=== PATIENT | female | born 1990 | race American Indian/Alaskan Native ===

== ENCOUNTER 2019-04-30 16:34 | Observation (INO) | payer MEDICAID ==
[2019-04-30] MEDS ORDERED: COLACE PO PRN (19:21)
[2019-04-30] MEDS ORDERED: ZOFRAN IV PRN (19:21)
[2019-04-30] MEDS ORDERED: TYLENOL PO PRN (19:21)
[2019-04-30] MEDS ORDERED: MILK OF MAGNESIA PO PRN (19:21)
--- NOTE | 2019-04-30 19:21 | History and Physical Report ---
History of Present Illness Date of examination: 04/30/19 Date of admission: 04/30/19 16:39 Chief complaint: Elevated BP's in office History of present illness: Pt is a 28yo BF EDC 06/01/19; EGA 35 3/7 weeks presents from [facility] for Observation and further evaluation of Preeclampsia. Her BP was 153/89 in the office and 181/110 in Triage, but she had not been taking her Labetolol as directed. She however denied headaches or blurred vision. She received late pre care at [facility] since 32 weeks and co-managed by [facility] for BP and previous C Section. records are available, but no labs noted and GBS is unknown. Past History Past Medical History: hypertension, other (Morbid obesity) Past Surgical History: section Social history: no significant social history, single - Obstetrical History Expected Date of Delivery: 06/01/19 Actual Gestation: 35 Week(s) 3 Day(s) : 3 Medications and Allergies Allergies Allergy/AdvReac Type Severity Reaction Status Date / Time No Known Allergies Allergy Unverified 04/30/19 17:58 Review of Systems All systems: negative - Vital Signs Vital signs: Vital Signs Temp Resp 98.2 F 18 04/30/19 17:25 04/30/19 17:25 Temp Pulse Resp BP Pulse Ox 98.2 F 75 18 143/88 04/30/19 17:25 04/30/19 17:26 04/30/19 17:25 04/30/19 17:26 - Physical Exam Breasts: Positive: deferred Cardiovascular: Regular rate Lungs: Positive: Clear to auscultation Abdomen: Positive: normal appearance Genitourinary (Female): Positive: normal external genitalia Uterus: Positive: enlarged Extremities: Positive: normal - Obstetrical FHR: category 1 Uterine Contraction Monitor Mode: External Uterine Contraction Pattern: Absent Results Result Diagrams: 04/30/19 17:41 04/30/19 17:41 All other labs normal. Ultrasound: report reviewed Assessment and Plan - Patient Problems (1) 35 weeks gestation of Onset Date: 04/30/19 Current Visit: Yes Status: Acute Plan to address problem: A: IUP @ 35 3/7 weeks Chronic hypertension with superimposed Preeclampsia Previous C Section P: Admit for Observation Obtain PIH labs, 24 hour urine Restart Labetolol 200mg BID (2) Chronic hypertension Onset Date: 04/30/19 Current Visit: Yes Status: Chronic (3) Hypertension affecting in third trimester Onset Date: 04/30/19 Current Visit: Yes Status: Acute (4) Previous section complicating Onset Date: 04/30/19 Current Visit: Yes Status: Chronic
[2019-04-30 19:33] LABS: Hematocrit 29.2 % (30.3-42.9); Hemoglobin 9.7 gm/dl (10.1-14.3); Mean Corpuscular HGB Conc 33 % (30-34); Mean Corpuscular Volume 89 fl (79-97); Platelet Count 407 K/mm3 (140-440); Red Blood Count 3.26 M/mm3 (3.65-5.03); Red Cell Distribution Width 14.4 % (13.2-15.2)
[2019-04-30] MEDS ORDERED: PREPARATION H PR PRN (19:46)
[2019-04-30 19:58] LABS: Alanine Aminotransferase 10 units/L (7-56); Uric Acid 4.7 mg/dL (3.5-7.6)
[2019-04-30 20:50] LABS: Alanine Aminotransferase 10 units/L (7-56); Albumin 3.4 g/dL (3.9-5); BUN/Creatinine Ratio 13; Blood Urea Nitrogen 5 mg/dL (7-17); Calcium 8.6 mg/dL (8.4-10.2); Hemolysis Index 16
[2019-04-30] MEDS ORDERED: TUCKS PAD TP PRN (20:54)
[2019-04-30 20:59] LABS: Basophils % (Manual) 0 % (0.0-1.8); Total Cells Counted 100
[2019-04-30 21:00] LABS: Eosinophils % (Manual) 0 % (0.0-4.3)
[2019-04-30 21:01] LABS: Large Platelets Few; RBC Morphology Normal
[2019-04-30 21:03] LABS: Platelet Estimate Appe
[2019-04-30] MEDS: NORMODYNE PO SCH (21:06)
[2019-04-30] MEDS ORDERED: PEPCID IV ONE (21:27)
[2019-04-30] MEDS ORDERED: TUMS PO SCH (22:00)
[2019-04-30] MEDS ORDERED: AMBIEN PO PRN (23:09)
[2019-05-01] MEDS: LACTATED RINGERS 1,000 ML IV SCH ×2 (05:15→10:29)
[2019-05-01] MEDS ORDERED: PRENATAL VITAMIN PO SCH (10:00)
[2019-05-01] MEDS: NORMODYNE PO SCH ×2 (10:26→20:00)
--- NOTE | 2019-05-01 10:39 | Progress Note ---
Assessment and Plan - Patient Problems (1) 35 weeks gestation of Onset Date: 04/30/19 Current Visit: Yes Status: Acute Plan to address problem: A: IUP @ 35 4/7 weeks Chronic hypertension with superimposed Preeclampsia Previous C Section P: Continue Observation Awaiting 24 hour urine results Continue Labetolol 200mg BID (2) Chronic hypertension Onset Date: 04/30/19 Current Visit: Yes Status: Chronic (3) Hypertension affecting in third trimester Onset Date: 04/30/19 Current Visit: Yes Status: Acute (4) Previous section complicating Onset Date: 04/30/19 Current Visit: Yes Status: Chronic Subjective - Subjective Date of service: 05/01/19 Principal diagnosis: IUP @ 35 4/7 weeks; Chronic hypertension with superimposed preeclampsia Interval history: Pt is a 28yo BF EDC 06/01/19; EGA 35 4/7 weeks presented from [facility] for Observation and further evaluation of Preeclampsia. Her BP was 153/89 in the office and 181/110 in Triage, but she had not been taking her Labetolol as directed. She however denied headaches or blurred vision. She received late care at [facility] since 32 weeks and co-managed by [facility] for BP and previous C Section. records are available, but no labs noted and GBS is unknown. This morning she is feeling well without complaints, denying headaches or blurred vision. Patient reports: movement normal, no new complaints, no loss of fluid, no vaginal bleeding, no contractions Objective - Vital Signs Vital Signs: Vital Signs - 12hr 04/30/19 04/30/19 04/30/19 22:40 22:45 22:49 Temperature Pulse Rate 90 93 H 88 Respiratory Rate Blood Pressure O2 Sat by Pulse 99 98 94 Oximetry 04/30/19 04/30/19 04/30/19 22:50 22:55 23:00 Temperature Pulse Rate 95 H 98 H 97 H Respiratory Rate Blood Pressure O2 Sat by Pulse 96 98 97 Oximetry 04/30/19 04/30/19 04/30/19 23:05 23:21 23:35 Temperature Pulse Rate 95 H 86 85 Respiratory Rate Blood Pressure 122/59 O2 Sat by Pulse 98 98 Oximetry 04/30/19 04/30/19 04/30/19 23:40 23:45 23:50 Temperature Pulse Rate 85 98 H 85 Respiratory Rate Blood Pressure O2 Sat by Pulse 99 98 99 Oximetry 04/30/19 05/01/19 05/01/19 23:55 00:00 00:06 Temperature 98.5 F Pulse Rate 84 84 84 Respiratory Rate Blood Pressure O2 Sat by Pulse 98 100 99 Oximetry 05/01/19 05/01/19 05/01/19 00:11 00:16 00:50 Temperature Pulse Rate 91 H 83 94 H Respiratory Rate Blood Pressure O2 Sat by Pulse 100 100 99 Oximetry 05/01/19 05/01/19 05/01/19 00:55 01:00 01:05 Temperature Pulse Rate 99 H 111 H 93 H Respiratory Rate Blood Pressure O2 Sat by Pulse 98 99 98 Oximetry 05/01/19 05/01/19 05/01/19 01:10 01:15 01:20 Temperature Pulse Rate 86 89 89 Respiratory Rate Blood Pressure O2 Sat by Pulse 96 97 97 Oximetry 05/01/19 05/01/19 05/01/19 01:25 01:30 01:35 Temperature Pulse Rate 82 84 85 Respiratory Rate Blood Pressure O2 Sat by Pulse 98 97 98 Oximetry 05/01/19 05/01/19 05/01/19 01:40 01:45 01:50 Temperature Pulse Rate 76 79 83 Respiratory Rate Blood Pressure O2 Sat by Pulse 96 97 96 Oximetry 05/01/19 05/01/19 05/01/19 01:53 01:55 02:00 Temperature Pulse Rate 99 H 85 77 Respiratory Rate Blood Pressure 119/68 O2 Sat by Pulse 97 98 Oximetry 05/01/19 05/01/19 05/01/19 02:05 02:10 02:15 Temperature Pulse Rate 76 78 91 H Respiratory Rate Blood Pressure O2 Sat by Pulse 98 97 97 Oximetry 05/01/19 05/01/19 05/01/19 02:20 02:25 02:30 Temperature Pulse Rate 81 70 76 Respiratory Rate Blood Pressure O2 Sat by Pulse 98 99 97 Oximetry 05/01/19 05/01/19 05/01/19 02:35 02:40 02:42 Temperature Pulse Rate 82 90 86 Respiratory Rate Blood Pressure O2 Sat by Pulse 97 97 94 Oximetry 05/01/19 05/01/19 05/01/19 02:45 02:47 02:50 Temperature Pulse Rate 92 H 89 98 H Respiratory Rate Blood Pressure O2 Sat by Pulse 99 93 95 Oximetry 05/01/19 05/01/19 05/01/19 02:55 02:59 03:00 Temperature Pulse Rate 82 97 H 84 Respiratory Rate Blood Pressure O2 Sat by Pulse 98 87 99 Oximetry 05/01/19 05/01/19 05/01/19 03:05 03:10 03:15 Temperature Pulse Rate 93 H 89 Respiratory Rate Blood Pressure O2 Sat by Pulse 99 87 98 Oximetry 05/01/19 05/01/19 05/01/19 03:20 03:25 03:30 Temperature Pulse Rate 82 84 84 Respiratory Rate Blood Pressure O2 Sat by Pulse 97 98 99 Oximetry 05/01/19 05/01/19 05/01/19 03:35 03:40 03:45 Temperature Pulse Rate 85 82 87 Respiratory Rate Blood Pressure O2 Sat by Pulse 97 98 97 Oximetry 05/01/19 05/01/19 05/01/19 03:50 03:53 03:55 Temperature Pulse Rate 82 86 94 H Respiratory Rate Blood Pressure 126/76 O2 Sat by Pulse 98 98 Oximetry 05/01/19 05/01/19 05/01/19 04:00 04:05 04:10 Temperature Pulse Rate 79 82 87 Respiratory Rate Blood Pressure O2 Sat by Pulse 97 96 96 Oximetry 05/01/19 05/01/19 05/01/19 04:15 04:20 04:25 Temperature Pulse Rate 108 H 90 85 Respiratory Rate Blood Pressure O2 Sat by Pulse 95 97 97 Oximetry 05/01/19 05/01/19 05/01/19 04:30 04:35 04:40 Temperature Pulse Rate 103 H 95 H 96 H Respiratory Rate Blood Pressure O2 Sat by Pulse 97 98 98 Oximetry 05/01/19 05/01/19 05/01/19 04:45 04:56 04:57 Temperature Pulse Rate 98 H 35 L 95 H Respiratory Rate Blood Pressure O2 Sat by Pulse 98 0 L 100 Oximetry 05/01/19 05/01/19 05/01/19 05:02 05:07 05:12 Temperature Pulse Rate 98 H 86 83 Respiratory Rate Blood Pressure O2 Sat by Pulse 100 98 98 Oximetry 05/01/19 05/01/19 05/01/19 05:17 05:22 05:27 Temperature Pulse Rate 86 87 89 Respiratory Rate Blood Pressure O2 Sat by Pulse 98 98 98 Oximetry 05/01/19 05/01/19 05/01/19 05:32 05:37 05:43 Temperature Pulse Rate 73 91 H 83 Respiratory Rate Blood Pressure O2 Sat by Pulse 98 99 99 Oximetry 05/01/19 05/01/19 05/01/19 05:45 05:48 05:53 Temperature Pulse Rate 56 L 89 88 Respiratory Rate Blood Pressure 145/76 O2 Sat by Pulse 78 L 100 89 Oximetry 05/01/19 05/01/19 05/01/19 05:58 06:03 06:08 Temperature Pulse Rate 76 73 88 Respiratory Rate Blood Pressure O2 Sat by Pulse 98 97 98 Oximetry 05/01/19 05/01/19 05/01/19 06:10 06:13 06:16 Temperature Pulse Rate 88 87 98 H Respiratory Rate Blood Pressure O2 Sat by Pulse 93 98 94 Oximetry 05/01/19 05/01/19 05/01/19 06:18 06:23 06:28 Temperature Pulse Rate 93 H 91 H 87 Respiratory Rate Blood Pressure O2 Sat by Pulse 96 97 96 Oximetry 05/01/19 05/01/19 05/01/19 06:33 06:38 06:43 Temperature Pulse Rate 86 91 H 88 Respiratory Rate Blood Pressure O2 Sat by Pulse 96 96 96 Oximetry 05/01/19 05/01/19 05/01/19 06:45 06:48 06:50 Temperature 98.5 F Pulse Rate 73 88 Respiratory Rate Blood Pressure O2 Sat by Pulse 96 94 Oximetry 05/01/19 05/01/19 05/01/19 06:53 06:55 06:58 Temperature Pulse Rate 88 86 87 Respiratory Rate Blood Pressure O2 Sat by Pulse 94 94 94 Oximetry 05/01/19 05/01/19 05/01/19 07:01 07:03 07:08 Temperature Pulse Rate 88 71 94 H Respiratory Rate Blood Pressure O2 Sat by Pulse 94 95 95 Oximetry 05/01/19 05/01/19 05/01/19 07:13 07:18 07:23 Temperature Pulse Rate 86 87 99 H Respiratory Rate Blood Pressure O2 Sat by Pulse 96 95 98 Oximetry 05/01/19 05/01/19 05/01/19 07:28 07:29 07:33 Temperature 98.5 F Pulse Rate 105 H 97 H 89 Respiratory 18 Rate Blood Pressure 122/64 O2 Sat by Pulse 98 98 Oximetry 05/01/19 05/01/19 05/01/19 07:38 07:43 07:48 Temperature Pulse Rate 92 H 91 H 89 Respiratory Rate Blood Pressure O2 Sat by Pulse 97 99 97 Oximetry 05/01/19 05/01/19 05/01/19 07:53 07:58 08:03 Temperature Pulse Rate 97 H 93 H 100 H Respiratory Rate Blood Pressure 126/66 O2 Sat by Pulse 96 97 97 Oximetry 05/01/19 05/01/19 05/01/19 08:08 08:09 08:13 Temperature Pulse Rate 98 H 94 H 102 H Respiratory Rate Blood Pressure O2 Sat by Pulse 96 92 99 Oximetry 05/01/19 05/01/19 05/01/19 08:16 08:46 08:51 Temperature Pulse Rate 99 H 90 88 Respiratory Rate Blood Pressure O2 Sat by Pulse 91 99 99 Oximetry 05/01/19 05/01/19 05/01/19 08:56 09:01 09:06 Temperature Pulse Rate 87 93 H 90 Respiratory Rate Blood Pressure O2 Sat by Pulse 99 100 100 Oximetry 05/01/19 05/01/19 05/01/19 09:11 09:16 09:20 Temperature Pulse Rate 87 92 H 90 Respiratory Rate Blood Pressure 128/77 O2 Sat by Pulse 99 99 Oximetry 05/01/19 05/01/19 05/01/19 09:21 09:26 09:31 Temperature Pulse Rate 94 H 100 H 94 H Respiratory Rate Blood Pressure O2 Sat by Pulse 98 99 99 Oximetry 05/01/19 05/01/19 05/01/19 09:36 09:37 09:40 Temperature Pulse Rate 102 H 88 99 H Respiratory Rate Blood Pressure O2 Sat by Pulse 98 93 99 Oximetry 05/01/19 05/01/19 05/01/19 09:46 09:51 09:56 Temperature Pulse Rate 100 H 93 H 97 H Respiratory Rate Blood Pressure O2 Sat by Pulse 100 98 99 Oximetry 05/01/19 05/01/19 05/01/19 10:01 10:06 10:11 Temperature Pulse Rate 92 H 95 H 93 H Respiratory Rate Blood Pressure O2 Sat by Pulse 99 100 100 Oximetry 05/01/19 05/01/19 05/01/19 10:15 10:16 10:26 Temperature Pulse Rate 95 H 96 H 90 Respiratory Rate Blood Pressure 149/89 O2 Sat by Pulse 81 L 100 Oximetry 05/01/19 10:27 Temperature Pulse Rate 90 Respiratory Rate Blood Pressure 149/89 O2 Sat by Pulse Oximetry - Exam Abdomen: Present: normal appearance, soft Uterus: Present: normal FHR: category 1 Uterine Contraction Monitor Mode: External Uterine Contraction Pattern: Absent - Labs Labs: Abnormal Labs 04/30/19 04/30/19 04/30/19 17:41 17:41 17:41 WBC 13.5 H RBC 3.26 L Hgb 9.7 L Hct 29.2 L Seg Neuts % (Manual) 82.0 H Seg Neutrophils # Man 11.1 H Sodium 135 L Carbon Dioxide 18 L BUN 5 L Creatinine 0.4 L 0.4 L Alkaline Phosphatase 130 H Lactate Dehydrogenase 257 H Albumin 3.4 L Laboratory Results - last 24 hr 04/30/19 04/30/19 04/30/19 17:41 17:41 17:41 WBC 13.5 H RBC 3.26 L Hgb 9.7 L Hct 29.2 L MCV 89 MCH 30 MCHC 33 RDW 14.4 Plt Count 407 Total Counted 100 Seg Neuts % (Manual) 82.0 H Band Neutrophils % 0 Lymphocytes % (Manual) 16.0 Reactive Lymphs % (Man) 0 Monocytes % (Manual) 2.0 Eosinophils % (Manual) 0 Basophils % (Manual) 0 Metamyelocytes % 0 Myelocytes % 0 Promyelocytes % 0 Blast Cells % 0 Nucleated RBC % Not Reportable Seg Neutrophils # Man 11.1 H Band Neutrophils # 0.0 Lymphocytes # (Manual) 2.2 Abs React Lymphs (Man) 0.0 Monocytes # (Manual) 0.3 Eosinophils # (Manual) 0.0 Basophils # (Manual) 0.0 Metamyelocytes # 0.0 Myelocytes # 0.0 Promyelocytes # 0.0 Blast Cells # 0.0 WBC Morphology Not Reportable Hypersegmented Neuts Not Reportable Hyposegmented Neuts Not Reportable Hypogranular Neuts Not Reportable Smudge Cells Not Reportable Toxic Granulation Not Reportable Toxic Vacuolation Not Reportable Dohle Bodies Not Reportable Pelger-Huet Anomaly Not Reportable Armando Rods Not Reportable Platelet Estimate Appe Clumped Platelets Not Reportable Plt Clumps, EDTA Not Reportable Large Platelets Few Giant Platelets Not Reportable Platelet Satelliting Not Reportable Plt Morphology Comment Not Reportable RBC Morphology Normal Dimorphic RBCs Not Reportable Polychromasia Not Reportable Hypochromasia Not Reportable Poikilocytosis Not Reportable Anisocytosis Not Reportable Microcytosis Not Reportable Macrocytosis Not Reportable Spherocytes Not Reportable Pappenheimer Bodies Not Reportable Sickle Cells Not Reportable Target Cells Not Reportable Tear Drop Cells Not Reportable Ovalocytes Not Reportable Helmet Cells Not Reportable Kan-Startex Bodies Not Reportable Bixby Rings Not Reportable [place] Cells Not Reportable Bite Cells Not Reportable Crenated Cell Not Reportable Elliptocytes Not Reportable Acanthocytes (Spur) Not Reportable Rouleaux Not Reportable Hemoglobin C Crystals Not Reportable Schistocytes Not Reportable Malaria parasites Not Reportable Jerome Bodies Not Reportable Hem Pathologist Commnt No Sodium Potassium Chloride Carbon Dioxide Anion Gap BUN Creatinine 0.4 L Estimated GFR > 60 BUN/Creatinine Ratio Glucose Uric Acid 4.7 Calcium Total Bilirubin AST 15 ALT 10 Alkaline Phosphatase Lactate Dehydrogenase 257 H Total Protein Albumin Albumin/Globulin Ratio Hep Bs Antigen HIV 1&2 Antibody Rapid HIV P24 Antigen Rubella IgG Antibody Blood Type O POSITIVE Antibody Screen Negative 04/30/19 04/30/19 04/30/19 17:41 17:41 17:41 WBC RBC Hgb Hct MCV MCH MCHC RDW Plt Count Total Counted Seg Neuts % (Manual) Band Neutrophils % Lymphocytes % (Manual) Reactive Lymphs % (Man) Monocytes % (Manual) Eosinophils % (Manual) Basophils % (Manual) Metamyelocytes % Myelocytes % Promyelocytes % Blast Cells % Nucleated RBC % Seg Neutrophils # Man Band Neutrophils # Lymphocytes # (Manual) Abs React Lymphs (Man) Monocytes # (Manual) Eosinophils # (Manual) Basophils # (Manual) Metamyelocytes # Myelocytes # Promyelocytes # Blast Cells # WBC Morphology Hypersegmented Neuts Hyposegmented Neuts Hypogranular Neuts Smudge Cells Toxic Granulation Toxic Vacuolation Dohle Bodies Pelger-Huet Anomaly Armando Rods Platelet Estimate Clumped Platelets Plt Clumps, EDTA Large Platelets Giant Platelets Platelet Satelliting Plt Morphology Comment RBC Morphology Dimorphic RBCs Polychromasia Hypochromasia Poikilocytosis Anisocytosis Microcytosis Macrocytosis Spherocytes Pappenheimer Bodies Sickle Cells Target Cells Tear Drop Cells Ovalocytes Helmet Cells Kan-Startex Bodies Bixby Rings Nyla Cells Bite Cells Crenated Cell Elliptocytes Acanthocytes (Spur) Rouleaux Hemoglobin C Crystals Schistocytes Malaria parasites Jerome Bodies Hem Pathologist Commnt Sodium 135 L Potassium 3.8 Chloride 101.8 Carbon Dioxide 18 L Anion Gap 19 BUN 5 L Creatinine 0.4 L Estimated GFR > 60 BUN/Creatinine Ratio 13 Glucose 75 Uric Acid Calcium 8.6 Total Bilirubin < 0.20 AST 15 ALT 10 Alkaline Phosphatase 130 H Lactate Dehydrogenase Total Protein 7.1 Albumin 3.4 L Albumin/Globulin Ratio 0.9 Hep Bs Antigen Non-reactive HIV 1&2 Antibody Rapid HIV P24 Antigen Rubella IgG Antibody Immune Blood Type Antibody Screen 04/30/19 17:41 WBC RBC Hgb Hct MCV MCH MCHC RDW Plt Count Total Counted Seg Neuts % (Manual) Band Neutrophils % Lymphocytes % (Manual) Reactive Lymphs % (Man) Monocytes % (Manual) Eosinophils % (Manual) Basophils % (Manual) Metamyelocytes % Myelocytes % Promyelocytes % Blast Cells % Nucleated RBC % Seg Neutrophils # Man Band Neutrophils # Lymphocytes # (Manual) Abs React Lymphs (Man) Monocytes # (Manual) Eosinophils # (Manual) Basophils # (Manual) Metamyelocytes # Myelocytes # Promyelocytes # Blast Cells # WBC Morphology Hypersegmented Neuts Hyposegmented Neuts Hypogranular Neuts Smudge Cells Toxic Granulation Toxic Vacuolation Dohle Bodies Pelger-Huet Anomaly Armando Rods Platelet Estimate Clumped Platelets Plt Clumps, EDTA Large Platelets Giant Platelets Platelet Satelliting Plt Morphology Comment RBC Morphology Dimorphic RBCs Polychromasia Hypochromasia Poikilocytosis Anisocytosis Microcytosis Macrocytosis Spherocytes Pappenheimer Bodies Sickle Cells Target Cells Tear Drop Cells Ovalocytes Helmet Cells Kna-Startex Bodies Bixby Rings [place] Cells Bite Cells Crenated Cell Elliptocytes Acanthocytes (Spur) Rouleaux Hemoglobin C Crystals Schistocytes Malaria parasites Jerome Bodies Hem Pathologist Commnt Sodium Potassium Chloride Carbon Dioxide Anion Gap BUN Creatinine Estimated GFR BUN/Creatinine Ratio Glucose Uric Acid Calcium Total Bilirubin AST ALT Alkaline Phosphatase Lactate Dehydrogenase Total Protein Albumin Albumin/Globulin Ratio Hep Bs Antigen HIV 1&2 Antibody Rapid Non react HIV P24 Antigen Non react Rubella IgG Antibody Blood Type Antibody Screen
--- NOTE | 2019-05-01 12:51 | Consultation ---
History of Present Illness Consult date: 05/01/19 Reason for consult: other (CHTN) History of present illness: Ms. Hurd is a 28 yo at 35.4 weeks gestation, noncompliant CHTN with Preeclampsia hx in previous admitted to [facility] on 04/30/19 secondary to elevated BP in [facility] office. She is currently being treated with Labetalol 200mg BID for CHTN management. 24 hour urine protein is in progress. She denies PIH symptoms. She admits movements. She denies PIH symptoms, contractions, leaking of fluid, and bleeding. She is without additional complaints. Past History Past Medical History: hypertension, other (Morbid obesity) Past Surgical History: section - Obstetrical History : 3 Medications and Allergies Allergies Allergy/AdvReac Type Severity Reaction Status Date / Time No Known Allergies Allergy Unverified 04/30/19 17:58 Active Meds: Active Medications Acetaminophen (Tylenol) 650 mg PO Q4H PRN PRN Reason: Pain MILD(1-3)/Fever >100.5/JEROME Calcium Carbonate/Glycine (Tums) 500 mg PO BID [facility] Last Admin: 05/01/19 10:33 Dose: 500 mg Documented by: Docusate Sodium (Colace) 100 mg PO Q12H PRN PRN Reason: Constipation Lactated Ringer's (Lactated Ringers) 1,000 mls @ 125 mls/hr IV DIRECT [facility] Last Admin: 05/01/19 10:29 Dose: 125 mls/hr Documented by: Labetalol HCl (Normodyne) 200 mg PO BID [facility] Last Admin: 05/01/19 10:26 Dose: 200 mg Documented by: Magnesium Hydroxide (Milk Of Magnesia) 30 ml PO QHS PRN PRN Reason: Laxative Effect Multivitamins/Iron/Calcium ( Vitamin) 1 each PO QDAY [facility] Last Admin: 05/01/19 10:26 Dose: 1 each Documented by: Ondansetron HCl (Zofran) 4 mg IV Q6H PRN PRN Reason: Nausea And Vomiting Last Admin: 04/30/19 21:06 Dose: 4 mg Documented by: Phenyleph/Shark Oil/Min Oil/Petrol (Preparation H) 1 applic ID [id number] PRN PRN Reason: Hemorrhoids Witch Summer/Glycerin (Tucks Pad) 1 each TP PRN PRN PRN Reason: Hemorrhoids Last Admin: 04/30/19 23:51 Dose: 1 each Documented by: Zolpidem Tartrate (Ambien) 10 mg PO QHS PRN PRN Reason: Insomnia Last Admin: 04/30/19 23:50 Dose: 10 mg Documented by: Review of Systems Constitutional: other (denies fatigue, chills, fever) Eyes: other (denies visual disturbances) Ears, nose, mouth and throat: deferred Cardiovascular: other (denies chest pain, edema, palpitations, sob) Respiratory: other (denies sob, wheezing, coughing) Breasts: deferred Gastrointestinal: other (denies diarrhea, constipation, RUQ pain) Genitourinary: other (denies contractions, leaking of fluid, and bleeding) Rectal Exam: deferred Integumentary: deferred Neurological: other (denies headaches) - Vital Signs Vital signs: Vital Signs Temp Resp 98.2 F 18 04/30/19 17:25 04/30/19 17:25 Temp Pulse Resp BP Pulse Ox 98.5 F 86 18 132/73 100 05/01/19 07:29 05/01/19 12:32 05/01/19 07:29 05/01/19 12:32 05/01/19 10:16 - Physical Exam Breasts: Positive: deferred Cardiovascular: Regular rate, Normal S1, Normal S2 Lungs: Positive: Clear to auscultation, Normal air movement Abdomen: Positive: soft, other (nontender, gravid) Results Result Diagrams: 04/30/19 17:41 04/30/19 17:41 Abnormal lab results 04/30/19 04/30/19 04/30/19 Range/Units 17:41 17:41 17:41 WBC 13.5 H (4.5-11.0) K/mm3 RBC 3.26 L (3.65-5.03) M/mm3 Hgb 9.7 L (10.1-14.3) gm/dl Hct 29.2 L (30.3-42.9) % Seg Neuts % (Manual) 82.0 H (40.0-70.0) % Seg Neutrophils # Man 11.1 H (1.8-7.7) K/mm3 Sodium 135 L (137-145) mmol/L Carbon Dioxide 18 L (22-30) mmol/L BUN 5 L (7-17) mg/dL Creatinine 0.4 L 0.4 L (0.7-1.2) mg/dL Alkaline Phosphatase 130 H (35-129) units/L Lactate Dehydrogenase 257 H (91-180) units/L Albumin 3.4 L (3.9-5) g/dL All other labs normal. Assessment and Plan A- IUP 35.4 weeks- NENA 06/01/19 CHTN- managed on Labetalol 200mg BID VSS 24 hour urine protein in progress Denies PIH symptoms P- Continue with current plan of care With severe range BP, abnormal labs, and PIH symptoms, recommend delivery. Complete Betamethasone course for lung maturity in case of delivery ( Per ACOG can be given up until 36.6 weeks gestation) Monitor for worsening PIH symptoms Continuous monitoring For additional questions or concerns, please contact [facility] customer service receptionist. Thank you. Kacie Trujillo NP
[2019-05-01] MEDS ORDERED: PEPCID IV ONE (15:34)
--- NOTE | 2019-05-01 19:45 | Discharge Summary ---
Providers - Providers Date of Admission: 04/30/19 16:39 Date of discharge: 05/01/19 Attending physician: JAE RUIZ Primary care physician: JAE RUIZ Hospitalization Reason for admission: IUP - , other (IUP @ 35 3/7 weeks; Chronic hypertension with superimposed preeclampsia) Other procedures: none complications: none Discharge diagnosis: other (IUP @ 35 4/7 weeks; Chronic hypertension with superimposed preeclampsia) Hospital course: Pt is a 28yo BF EDC 06/01/19; EGA 35 4/7 weeks presented from [facility] for Observation and further evaluation of Preeclampsia. Her BP was 153/89 in the office and 181/110 in Triage, but she had not been taking her Labetolol as directed. She however denied headaches or blurred vision. She received late care at [facility] since 32 weeks and co-managed by [facility] for BP and previous C Section. records are available, but no labs noted and GBS is unknown. This morning she is feeling well without complaints, denying headaches or blurred vision. Appreciate APA consult. Her 24hr Total protein 286mg She will be D/C home on Labetolol 200mg BID (already called in to [facility]) and follow up in the office in 3 days for BP check. Condition at discharge: Good Disposition: DC-01 TO HOME OR SELFCARE - Discharge Diagnoses (1) 35 weeks gestation of Status: Acute (2) Chronic hypertension Status: Chronic (3) Hypertension affecting in third trimester Status: Acute (4) Previous section complicating Status: Chronic Plan - Discharge Medications Prescriptions: Labetalol [Labetalol 200mg TAB] 200 mg PO BID #60 tablet - Provider Discharge Summary Activity: routine, no sex for 6 weeks, no heavy lifting 4 weeks, no strenuous exercise Diet: routine Instructions: routine Additional instructions: [] Smoking cessation referral if applicable(refer to patient education folder for contact #) [] Refer to [facility] Booklet Call your doctor immediately for: * Fever > 100.5 * Heavy vaginal bleeding ( >1 pad per hour) * Severe persistent headache * Shortness of breath * Reddened, hot, painful area to leg or breast * Drainage or odor from incision. * Keep incision clean and dry at all times and follow doctor's instructions regarding bathing/showering - Follow up plan Follow up: JAE RUIZ MD [Primary Care Provider] - 3 Days LEANDER BLEVINS CNM [Advanced Practice Nurse] - 3 Days
[2019-05-01 19:57] VITALS: BP 152/72
== END 2019-05-01 20:03 | disposition home or self-care (01) ==
LOC: TRG 16:34 → LD 16:37 → TRG 16:38 → LD 16:39
PROVIDERS: ADMIT Obstetrics & Gynecology; ATTEND Obstetrics & Gynecology
DX: O16.3 Unspecified maternal hypertension, third trimester (principal); Z98.890 Other specified postprocedural states; Z3A.35 35 weeks gestation of pregnancy; O99.213 Obesity complicating pregnancy, third trimester; Z79.899 Other long term (current) drug therapy
CPT/HCPCS: 36415; 80053; 82565; 83615; 84156; 84450; 84460; 84550; 85007; 85027; 86706; 86762; 86850; 86900; 86901; 87806; 96374; 96375; 96376; G0378; J2405; J7120

== ENCOUNTER 2019-05-14 12:52 | Inpatient (IN) | payer MEDICAID ==
[2019-05-14] MEDS ORDERED: MINERAL OIL PO PRN (17:23)
[2019-05-14] MEDS ORDERED: ZOFRAN IV PRN (17:23)
[2019-05-14] MEDS ORDERED: SUBLIMAZE IV PRN (17:23)
[2019-05-14] MEDS ORDERED: BRETHINE IVP PRN (17:23)
[2019-05-14] MEDS ORDERED: STADOL IV PRN (17:23)
[2019-05-14] MEDS ORDERED: XYLOCAINE 2% INFILTRATI ONE (17:23)
[2019-05-14] MEDS ORDERED: BRETHINE SUB-Q PRN (17:23)
--- NOTE | 2019-05-14 17:30 | History and Physical Report ---
History of Present Illness Date of examination: 05/14/19 Date of admission: 05/14/19 12:52 History of present illness: Pt is a 28yo BF EDC 06/01/19; EGA 37 3/7 weeks presents from [facility] for D elivery and evaluation of Preeclampsia. Her BP was 149/88 and 171/107 in the office even with taking her Labetolol 200mg BID as directed. She however denied headaches or blurred vision. She received late care at [facility] since 32 weeks and co-managed by [facility] for Chronic hypertension, Obesity and previous C Section. records are available, and GBS is unknown. Past History Past Medical History: hypertension Past Surgical History: section Family/Genetic History: none Social history: no significant social history, single - Obstetrical History Expected Date of Delivery: 06/01/19 Actual Gestation: 37 Week(s) 3 Day(s) : 3 Medications and Allergies Allergies Allergy/AdvReac Type Severity Reaction Status Date / Time No Known Allergies Allergy Unverified 04/30/19 17:58 Home Medications Medication Instructions Recorded Confirmed Last Taken Type Labetalol [Labetalol 200mg TAB] 200 mg PO BID #60 tablet 05/01/19 Unknown Rx Active Meds: Active Medications Butorphanol Tartrate (Stadol) 2 mg IV Q2H PRN PRN Reason: Pain , Severe (7-10) Dinoprostone (Cervidil) 10 mg VG ONCE ONE Stop: 05/14/19 17:24 Ephedrine Sulfate (Ephedrine Sulfate) 10 mg IV Q2M PRN PRN Reason: Hypotension Fentanyl (Sublimaze) 100 mcg IV Q2H PRN PRN Reason: Labor Pain Oxytocin/Sodium Chloride (Pitocin/Ns 20 Unit/1000ml Drip) 20 units in 1,000 mls @ 125 mls/hr IV DIRECT JEWEL Oxytocin/Sodium Chloride (Pitocin/Ns 30 Unit/500ml) 30 units in 500 mls @ 1 mls/hr IV TITR JEWEL; Protocol Lactated Ringer's (Lactated Ringers) 1,000 mls @ 125 mls/hr IV DIRECT JEWEL Lidocaine (Xylocaine 2%) 20 ml INFILTRATI ONCE ONE Stop: 05/14/19 17:24 Mineral Oil (Mineral Oil) 30 ml PO QHS PRN PRN Reason: Constipation Ondansetron HCl (Zofran) 4 mg IV Q8H PRN PRN Reason: Nausea And Vomiting Terbutaline Sulfate (Brethine) 0.25 mg SUB-Q ONCE PRN PRN Reason: Hyperstimulation/Hypertonicity Terbutaline Sulfate (Brethine) 0.25 mg IVP ONCE PRN PRN Reason: Hyperstimulation/Hypertonicity Review of Systems All systems: negative - Vital Signs Vital signs: Vital Signs Temp Resp 98.5 F 18 05/14/19 13:25 05/14/19 13:25 Temp Pulse Resp BP Pulse Ox 98.5 F 87 18 138/88 05/14/19 13:25 05/14/19 16:46 05/14/19 13:25 05/14/19 16:46 - Physical Exam Breasts: Positive: deferred Cardiovascular: Regular rate Lungs: Positive: Clear to auscultation Abdomen: Positive: normal appearance Genitourinary (Female): Positive: normal external genitalia Uterus: Positive: enlarged Extremities: Positive: normal - Obstetrical FHR: category 1 Uterine Contraction Monitor Mode: External Cervical Dilatation: 1 (per nurse) Cervical Effacement Percentage: 30 (per nurse) station: -3 Uterine Contraction Pattern: Absent Results Result Diagrams: 05/14/19 17:15 All other labs normal. Ultrasound: report reviewed (BPP 8/8; Cephalic; NGHIA 21.62) Assessment and Plan - Patient Problems (1) 37 weeks gestation of Current Visit: Yes Status: Acute Plan to address problem: A: IUP @ 37 3/7 weeks Chronic hypertension with superimposed preeclampsia Obesity Previous C Section P: Admit for cervidil/pitocin induction of labor PIH labs IV Magnesium sulfate, IV hydralazine as needed (2) Hypertension affecting in third trimester Onset Date: 04/30/19 Current Visit: No Status: Acute (3) Previous section complicating Onset Date: 04/30/19 Current Visit: No Status: Chronic
[2019-05-14 17:45] LABS: Hematocrit 31.9 % (30.3-42.9); Hemoglobin 10.8 gm/dl (10.1-14.3); Mean Corpuscular HGB Conc 34 % (30-34); Mean Corpuscular Volume 89 fl (79-97); Platelet Count 454 K/mm3 (140-440); Red Blood Count 3.58 M/mm3 (3.65-5.03); Red Cell Distribution Width 15.5 % (13.2-15.2)
[2019-05-14] MEDS ORDERED: LACTATED RINGERS 1,000 ML IV SCH (18:00)
[2019-05-14] MEDS ORDERED: PITOCin/NS 20 UNIT/1000ML DRIP 20 UNITS/1,000 ML BAG IV SCH (18:00)
[2019-05-14] MEDS ORDERED: PITOCin/NS 30 UNIT/500ML 30 UNITS/500 ML BAG IV SCH (18:00)
[2019-05-14] MEDS ORDERED: CERVIDIL VG ONE ×2 (18:30→20:59)
[2019-05-14] MEDS ORDERED: ALUM-MAG HYDROX-SIMETH 200-200-20MG/5ML PO PRN (20:04)
[2019-05-14] MEDS ORDERED: AMBIEN PO ONE (22:00)
[2019-05-14 22:21] LABS: Alanine Aminotransferase 9 units/L (7-56); Albumin 3.5 g/dL (3.9-5); BUN/Creatinine Ratio 15; Blood Urea Nitrogen 6 mg/dL (7-17); Calcium 8.6 mg/dL (8.4-10.2); Hemolysis Index 6
[2019-05-15] MEDS ORDERED: APRESOLINE IV ONE (00:42)
[2019-05-15] MEDS ORDERED: NARCAN 2 MG/2 ML IV PRN (01:42)
--- NOTE | 2019-05-15 01:43 | Anesthesia Consultation ---
Anesthesia Consult and Med Hx Date of service: 05/14/19 - Airway Anesthetic Teeth Evaluation: Good ROM Head & Neck: Adequate Mental/Hyoid Distance: Adequate Mallampati Class: Class II Intubation Access Assessment: Probably Good - Pulmonary Exam CTA: Yes - Cardiac Exam Cardiac Exam: RRR - Pre-Operative Health Status ASA Pre-Surgery Classification: ASA3 Proposed Anesthetic Plan: Epidural - Pulmonary Hx Asthma: No COPD: No Hx Pneumonia: No - Cardiovascular System Hx Hypertension: Yes (Pre-eclampsia) - Central Nervous System Hx Psychiatric Problems: No - Endocrine Hx End Stage Renal Disease: No Hx Hypothyroidism: No Hx Hyperthyroidism: No - Hematic Hx Anemia: No Hx Sickle Cell Disease: No - Other Systems Hx Alcohol Use: No
[2019-05-15] MEDS ORDERED: fentaNYL-BUPIV 2 MCG/ML-0.125% 200 MCG/100 ML BAG EPIDURAL SCH (02:00)
--- NOTE | 2019-05-15 02:59 | Procedure Note ---
OB Delivery Note - Delivery Date of Delivery: 05/15/19 Surgeon: JAE RUIZ Estimated blood loss: 100cc - Vaginal Delivery presentation: vertex Delivery position: OA Intrapartum events: gestational hypertension, preeclampsia Delivery induction: cervidil Delivery augmentation: rupture of membranes Delivery monitor: external FHT, external uterine Route of delivery: Delivery placenta: spontaneous, uterine exploration Delivery cord: nuchal cord, 3 umbilical vessels Episiotomy: none Delivery laceration: none Anesthesia: epidural Delivery comments: Infant delivered OA and placed on Mom's chest for [id number] bonding and delayed cord clamping, cut by Dad - Infant A at 1 minute: 8 at 5 minutes: 9 Gender: Male (3047gms)
[2019-05-15] MEDS ORDERED: MILK OF MAGNESIA PO PRN (03:03)
[2019-05-15] MEDS ORDERED: PHENERGAN PO PRN (03:03)
[2019-05-15] MEDS ORDERED: ZOFRAN IV PRN (03:03)
[2019-05-15] MEDS ORDERED: LANSINOH TP PRN (03:03)
[2019-05-15] MEDS ORDERED: TUCKS PAD TP PRN (03:03)
[2019-05-15] MEDS ORDERED: DULCOLAX PR PRN (03:03)
[2019-05-15] MEDS ORDERED: BENADRYL PO PRN (03:03)
[2019-05-15] MEDS ORDERED: PHENERGAN PR PRN (03:03)
[2019-05-15] MEDS ORDERED: TYLENOL PO PRN (03:03)
[2019-05-15] MEDS: IBUPROFEN PO SCH ×4 (03:47→22:30)
[2019-05-15] MEDS ORDERED: SODIUM CHLORIDE FLUSH SYRINGE 10 ML IV NR (04:00)
[2019-05-15] MEDS ORDERED: PITOCin/NS 20 UNIT/1000ML DRIP 20 UNITS/1,000 ML BAG IV SCH (04:00)
[2019-05-15] MEDS: COLACE PO SCH ×2 (09:29→22:28)
[2019-05-15] MEDS: FEOSOL PO SCH ×2 (09:31→22:28)
[2019-05-15] MEDS: PRENATAL VITAMIN PO SCH (09:31)
[2019-05-15] MEDS ORDERED: APRESOLINE IV PRN (10:50)
[2019-05-15] MEDS: NORMODYNE PO SCH ×2 (11:00→22:29)
[2019-05-15 14:50] LABS: Hematocrit 26.1 % (30.3-42.9); Hemoglobin 8.6 gm/dl (10.1-14.3)
[2019-05-15] MEDS: NORCO 5/325 PO PRN (15:42)
[2019-05-16] MEDS ORDERED: M-M-R II VACCINE SUB-Q ONE (06:00)
[2019-05-16] MEDS ORDERED: BOOSTRIX IM ONE (06:00)
--- NOTE | 2019-05-16 08:43 | Progress Note ---
Assessment and Plan - Patient Problems (1) 37 weeks gestation of Current Visit: Yes Status: Resolved (2) Hypertension affecting in third trimester Onset Date: 04/30/19 Current Visit: No Status: Chronic (3) Previous section complicating Onset Date: 04/30/19 Current Visit: No Status: Resolved (4) (vaginal after ) Onset Date: 05/16/19 Current Visit: Yes Status: Resolved Plan to address problem: A: S/P - PPD #1 Doing well Asymptomatic anemia - stable P: May go home today. Subjective - Subjective Date of service: 05/16/19 Principal diagnosis: s/p - PPD #1 Interval history: Pt is feeling well without complaints. Bleeding improved. Patient reports: appetite normal, voiding normally, pain well controlled, flatus, ambulating normally, no dizzy ambulation, no nauseated [place]: doing well, nursing well, bottle feeding Objective - Vital Signs Latest vital signs: Vital Signs Temp Pulse Resp BP BP Pulse Ox 05/16/19 04:40 98.6 F 18 116/73 05/16/19 00:28 98.0 F 18 132/82 05/15/19 22:29 153/97 05/15/19 22:25 98.0 F 18 153/97 05/15/19 18:45 20 155/89 05/15/19 18:35 20 143/87 05/15/19 18:30 20 141/85 05/15/19 17:08 98.2 F 85 18 160/94 05/15/19 15:42 20 05/15/19 15:40 20 05/15/19 11:44 98.9 F 77 20 141/94 99 05/15/19 09:30 20 Intake and Output 05/15/19 05/16/19 05/16/19 22:59 06:59 14:59 Intake Total 980 200 Balance 980 200 Intake: Oral 680 200 Intake, Free Water 300 Other: Total, Intake Amount 200 200 - Exam Breasts: Present: deferred Abdomen: Present: normal appearance, soft Uterus: Present: normal, firm, fundal height below umbilicus Extremities: Present: normal - Labs Labs: Abnormal lab results 05/15/19 Range/Units 14:36 Hgb 8.6 L (10.1-14.3) gm/dl Hct 26.1 L (30.3-42.9) % Laboratory Tests 05/14/19 05/14/19 05/14/19 17:15 17:15 17:15 WBC 15.0 H RBC 3.58 L Hgb 10.8 Hct 31.9 MCV 89 MCH 30 MCHC 34 RDW 15.5 H Plt Count 454 H Sodium Potassium Chloride Carbon Dioxide Anion Gap BUN Creatinine Estimated GFR BUN/Creatinine Ratio Glucose Calcium Total Bilirubin AST ALT Alkaline Phosphatase Total Protein Albumin Albumin/Globulin Ratio RPR Nonreactive Blood Type O POSITIVE Antibody Screen Negative 05/14/19 05/15/19 21:47 14:36 WBC RBC Hgb 8.6 L Hct 26.1 L MCV MCH MCHC RDW Plt Count Sodium 137 Potassium 3.7 Chloride 102.5 Carbon Dioxide 22 Anion Gap 16 BUN 6 L Creatinine 0.4 L Estimated GFR > 60 BUN/Creatinine Ratio 15 Glucose 76 Calcium 8.6 Total Bilirubin 0.20 AST 12 ALT 9 Alkaline Phosphatase 157 H Total Protein 6.9 Albumin 3.5 L Albumin/Globulin Ratio 1.0 RPR Blood Type Antibody Screen
--- NOTE | 2019-05-16 09:55 | Discharge Summary ---
Providers - Providers Date of Admission: 05/14/19 12:52 Date of discharge: 05/16/19 Attending physician: JAE RUIZ Primary care physician: JAE RUIZ Hospitalization Reason for admission: induction of labor, IUP at term, other (Chronic hypertension with superimposed preeclampsia; Previous C Section) Delivery: Episiotomy: none Laceration: none Other procedures: none complications: none Discharge diagnosis: IUP at term delivered [place] baby: male Hospital course: Pt is a 28yo BF EDC 06/01/19; EGA 37 3/ weeks who presented from [facility] for Delivery due to Preeclampsia. Her BP was 149/88 and 171/107 in the office even with taking her Labetolol 200mg BID as directed. She however denied headaches or blurred vision. She received late care at [facility] since 32 weeks and co-managed by [facility] for Chronic hypertension, Obesity and previous C Section. She received cervidil and subsequently delivered a 6lb 11oz (3047gms) male infant. course was unremarkable, and she was discharged on PPD #1 in stable condition. She will follow up in the office in 1 week for BP check. Condition at discharge: Good Disposition: DC-01 TO HOME OR SELFCARE - Discharge Diagnoses (1) 37 weeks gestation of Status: Resolved (2) Hypertension affecting in third trimester Status: Chronic (3) Previous section complicating Status: Resolved (4) (vaginal after ) Status: Resolved Plan - Discharge Medications Prescriptions: Ferrous Sulfate [Feosol 325 MG tab] 325 mg PO BID #60 tablet Ibuprofen [Motrin 600 MG tab] 600 mg PO Q6HR #30 tablet Vit-Fe Fumar-FA [ Vitamin] 1 each PO QDAY #30 tablet - Provider Discharge Summary Activity: routine, no sex for 6 weeks, no heavy lifting 4 weeks, no strenuous exercise Diet: routine Instructions: routine Additional instructions: [] Smoking cessation referral if applicable(refer to patient education folder for contact #) [] Refer to [facility] Booklet Call your doctor immediately for: * Fever > 100.5 * Heavy vaginal bleeding ( >1 pad per hour) * Severe persistent headache * Shortness of breath * Reddened, hot, painful area to leg or breast * Drainage or odor from incision. * Keep incision clean and dry at all times and follow doctor's instructions regarding bathing/showering Follow up in office in 1 week for BP check - Follow up plan Follow up: JAE RUIZ MD [Primary Care Provider] - 7 Days LEANDER BLEVINS CNM [Advanced Practice Nurse] - 7 Days
[2019-05-16] MEDS: FEOSOL PO SCH ×2 (10:19→22:52)
[2019-05-16] MEDS: COLACE PO SCH ×2 (10:19→22:52)
[2019-05-16] MEDS: NORMODYNE PO SCH ×2 (10:19→22:52)
[2019-05-16] MEDS: PRENATAL VITAMIN PO SCH (10:21)
[2019-05-16] MEDS: IBUPROFEN PO SCH ×2 (10:23→20:24)
[2019-05-16] MEDS: NORCO 5/325 PO PRN ×2 (10:26→22:55)
[2019-05-17 08:05] VITALS: BP 147/95
== END 2019-05-17 03:30 | disposition home or self-care (01) | DRG 774 ==
LOC: LD 12:52 → OB 05-15 06:16
PROVIDERS: ADMIT Obstetrics & Gynecology; ATTEND Obstetrics & Gynecology
PROC: 10E0XZZ Delivery of Products of Conception, External Approach (ICD-10-PCS; principal; 2019-05-15)
PROC: 3E033VJ Introduction of Other Hormone into Peripheral Vein, Percutaneous Approach (ICD-10-PCS; 2019-05-15)
PROC: 3E0R3BZ Introduction of Anesthetic Agent into Spinal Canal, Percutaneous Approach (ICD-10-PCS; 2019-05-15)
PROC: 00HU33Z Insertion of Infusion Device into Spinal Canal, Percutaneous Approach (ICD-10-PCS; 2019-05-15)
PROC: 3E0234Z Introduction of Serum, Toxoid and Vaccine into Muscle, Percutaneous Approach (ICD-10-PCS; 2019-05-16)
DX: O13.4 Gestational [pregnancy-induced] hypertension without significant proteinuria, complicating childbirth (principal); Z3A.37 37 weeks gestation of pregnancy; Z37.0 Single live birth; Z23 Encounter for immunization; O99.214 Obesity complicating childbirth; E66.9 Obesity, unspecified; O14.94 Unspecified pre-eclampsia, complicating childbirth; O69.81X0 Labor and delivery complicated by cord around neck, without compression, not applicable or unspecified; O90.81 Anemia of the puerperium; D64.9 Anemia, unspecified
CPT/HCPCS: 36415; 59200; 80053; 85014; 85018; 85027; 86592; 86850; 86900; 86901; 88307; G0378; A6250; J0360; J2590; J7120; Q0169